=== PATIENT | female | born 1990 | race African-American/Black ===

== ENCOUNTER 2023-07-04 14:10 | Emergency (ER) | payer MEDICAID ==
[~2023-07-04] VITALS: Ht 160 cm; Wt 61.0 kg
[2023-07-04 14:25] VITALS: TEMP 98.6; O2SAT 100
[2023-07-04 15:34] VITALS: BP 117/77; PULSE 91; RESP 16
== END 2023-07-04 15:33 | disposition home or self-care (01) ==
LOC: ER 15:08
DX: R45.1 Restlessness and agitation (principal); Z86.59 Personal history of other mental and behavioral disorders
CPT/HCPCS: 99283